=== PATIENT | female | born 1975 | race Caucasian/White ===

== ENCOUNTER 2021-08-28 08:54 | Emergency (ER) | payer BC, MEDICARE, SELFPAY ==
[2021-08-28 08:55] VITALS: BP 132/94; PULSE 83; RESP 18; TEMP 36.5; O2SAT 96; BMI 29.5
[2021-08-28 08:57] VITALS: BP 132/94; PULSE 83; RESP 18; TEMP 36.5; O2SAT 96
[2021-08-28 09:01] VITALS: BP 127/92; PULSE 89; RESP 12; O2SAT 96
--- NOTE | 2021-08-28 09:13 | EKG12_ITS ---
Test Reason : NEAR SYNCRONY Blood Pressure : / mmHG Vent. Rate : 078 BPM Atrial Rate : 078 BPM P-R Int : 188 ms QRS Dur : 088 ms QT Int : 402 ms P-R-T Axes : -02 -05 001 degrees QTc Int : 458 ms Normal sinus rhythm Poor R wave progression Confirmed by SRINIVAS COLE, EVANS ([id number]), legal editor KARLA MARSHALL ([id number]) on 08/30/2021 9:50:28 AM Referred By: PL Confirmed By:EVANS ESPINO MD
--- NOTE | 2021-08-28 09:16 | EDS_ITS ---
HPI History of Present Illness Chief Complaint: Dizziness Informant: patient Narrative Narrative: Patient had an episode of near syncope while driving with a friend. The friend was actually doing the driving. They were on their way to eat. She had not eaten or drank or taken her medications yet. She states that she got some mild tunneling of vision and voices and sounds in her ears got distant. It is now resolved. It lasted a few minutes. She never had chest pain or palpitations. No other symptoms. She felt fine before and after it and feels fine now. Patient has had at least 6 or 7 of these episodes since the summer. She is is seeing her physician for this. It sounds like she has a follow-up with an [facility] compliance coordinator. They have diagnosed her with syncope but she does not know all the details related to that. It sounds like tilt table testing or cardiac monitoring has not yet been done. Patient also has renal transplant. She had IgA nephropathy originally. First kidney transplant was . Her third 1 was done in 2007. There have been no change in rejection or other medications recently. No change in urine output. She has not felt sick in any fashion. Patient has had multiple episodes of these. When her has been around he is checked her blood pressure and found that her blood pressure is on the lower side at about 90s and her heart rate she recalls is being a bit low also. They spontaneously resolve. [facility] Medical History Diabetes Fistula HTN (hypertension) Skin cancer Syncope Allergy/AdvReac Type Severity Reaction Status Date / Time diphenhydramine Allergy Other Verified 08/28/21 08:58 [From Benadryl] iron Allergy Upset Verified 08/28/21 08:58 Stomach mycophenolate mofetil Allergy Rash Verified 08/28/21 08:58 [From CellCept] promethazine [From Phenergan] Allergy Other Verified 08/28/21 08:58 Surgical History H/O shoulder surgery H/O: hysterectomy History of hip replacement Kidney transplant recipient Social History Smoking Status: Never smoker ROS ROS ED Constitutional Constitutional ED: Denies chills or fever(s) Eyes Eyes: Reports other Details: Transient tunnel vision now resolved. ; Denies diplopia ENT ENT ED: Denies rhinorrhea or sore throat Cardiovascular Cardiovascular: Denies chest pain, palpitations or racing heartbeat Respiratory/Chest Respiratory/Chest: Denies cough or dyspnea Gastrointestinal Gastrointestinal: Denies diarrhea, nausea or vomiting Genitourinary Genitourinary ED: Reports other Details: No change in urine output. ; Denies dysuria, hematuria or urinary frequency Musculoskeletal Musculoskeletal: Denies myalgias Integumentary Denies rash Neurologic Neurologic: Denies headache(s), paresthesias or weakness Psychiatric Psychiatric: Denies anxiety or depression Endocrine Endocrinology: Denies polydipsia or polyuria Allergic/Immunologic Allergic/Immunologic ED: Denies urticaria EXAM Physical Exam Const Vital Signs: 08/28/21 08:55 08/28/21 08:57 08/28/21 09:01 Temperature 97.7 F L 97.7 F L Temperature Source Oral Oral Pulse Rate 83 83 89 Respiratory Rate 18 18 12 Respiratory Effort Normal Non-Labored Respiratory Pattern Normal Blood Pressure 132/94 H 132/94 H 127/92 H Blood Pressure Mean 106 106 103 Pulse Ox 96 96 96 Oxygen Delivery Method Room Air Room Air Room Air Oxygen Flow Rate (L/min) 08/28/21 09:17 Temperature Temperature Source Pulse Rate Respiratory Rate Respiratory Effort Respiratory Pattern Blood Pressure Blood Pressure Mean Pulse Ox Oxygen Delivery Method Room Air Oxygen Flow Rate (L/min) 97 Positive well nourished and well developed General Appearance ED: well developed and NAD; Negative for cyanotic or diaphoretic HEENT Reports moist mucous membranes Eyes General Eye ED: Negative for pale conjunctiva or scleral icterus Neck no JVD Resp normal respiratory effort and clear to auscultation bilaterally Resp Narrative: Completely clear lungs. No problem with deep breath. Effort and Inspection: Negative for pain with movement Auscultation: Negative for rales, rhonchi or wheezes Cardio regular rate, regular rhythm and no murmurs GI normal to inspection, nondistended, normoactive bowel sounds and non-tender GI Narrative: Patient's most recent kidney transplant is in the right lower quadrant. She has not been having pain or discomfort in that area. There is no tenderness. Palpation: soft Back/Spine no CVA tenderness Extremity normal to inspection Extremity Narrative: Slight decreased pulse to right upper extremity but she states that is normal because she has had a fistula there. General Extremety ED: Negative for edema or tenderness General Extremity: Negative for edema Neuro oriented x3 Sensorium / Orientation: alert Psych mental status grossly normal Skin no rashes or lesions noted MDM MDM MDM Narrative Medical decision making narrative: Normal CBC. Electrolytes showed mild decrease potassium this can be fixed with diet. Creatinine was a bit elevated. She states this is just a little bit above her baseline. Its not really out of normal range to any great degree. Calcium is minimally elevated which is common. Magnesium is normal. Troponin is negative. Urine is showing no sign of infection. There is some protein which she states is also typical. She is not having pain at her transplant site. She is feels totally normal. I find out that the patient is on Norvasc, clonidine and a beta-israel. When she has had these symptoms her blood pressure and her heart rate seem a little bit low. She states her blood pressure machine at home is reading higher than others and she is wondering if she is overtaking meds based on this. She will get her machine checked. She will follow up with her primary physician. Patient is also having her primary physician to her referral for electrophysiology at [facility]. I think this is very appropriate because of her complex medical history and should be pursued. Lab Data Attestation: I reviewed the patient's lab results. Labs: Laboratory Results - last 24 hr 08/28/21 08/28/21 08/28/21 08:46 08:46 09:54 WBC 10.8 RBC 4.40 Hgb 12.2 Hct 38.0 MCV 86.4 MCH 27.7 MCHC 32.1 RDW Std Deviation 48.5 H RDW Coeff of [place] 15.7 H Plt Count 435 MPV 10.6 Immature Gran % (Auto) 1.200 H Neut % (Auto) 53.5 Lymph % (Auto) 37.7 [place] % (Auto) 6.1 Eos % (Auto) 0.9 Baso % (Auto) 0.6 Absolute Neuts (auto) 5.8 Absolute Lymphs (auto) 4.05 Nucleated RBC % 0 Sodium 137 Potassium 3.3 L Chloride 105 Carbon Dioxide 21.0 Anion Gap 11 BUN 29 H Creatinine 1.58 H Estim Creat Clear Calc 44.19 Est GFR (MDRD) Af Amer 46 L Est GFR (MDRD) Non-Af 38 L BUN/Creatinine Ratio 18.4 Glucose 177 H Calcium 10.7 H Magnesium 1.9 Troponin I High Sens 6 Urine Color Yellow Urine Clarity Sl. Cloudy Urine pH 5.0 Ur Specific [place] 1.020 Urine Protein 500 H Urine Glucose (UA) 50 H Urine Ketones Negative Urine Occult Blood 10 H Urine Nitrite Negative Urine Bilirubin Negative Urine Urobilinogen Normal Ur Leukocyte Esterase Negative Urine RBC 0-5 SEEN Urine WBC 0-5 SEEN Ur Squamous Epith Cells 5-10 SEEN Urine Bacteria 1+ Urine Mucus Not Reportable Radiography Diagnostic Testing: Clinical Impression(s) from Imaging Studies Chest X-Ray 08/28/21 09:20 IMPRESSION: No acute abnormality is seen. Electronically Signed: Jose Brandon MD at 9:45 EST , EKG Initial EKG: Comments: EKG done due to near syncope read by me shows a normal sinus rhythm with overall rate of 78. No ectopy. No acute ST elevation or depression. MA interval, QRS duration and QTc are normal. Discharge Plan Triage Chief Complaint: Dizziness ED Provider: Ian Mosquera Dx/Rx/DC Orders Clinical Impression: Near syncope Instructions: ED Near-Fainting, Uncertain Cause Referrals: ARTEMIO DOOLEY [Other] - As soon as possible Activity Restrictions/Additional Instructions: Recommend follow-up with irb compliance coordinator as soon as possible. Disposition Disposition: Home, Self Care
--- NOTE | 2021-08-28 09:20 | RAD_ITS ---
STUDY: X-RAY CHEST REASON FOR EXAM: Female, 45 years old. Chest pain TECHNIQUE: Single AP portable view of the chest. COMPARISON: None. FINDINGS: EKG electrodes are seen. The lungs are clear and expanded. There is no demonstrated pleural abnormality. Normal size heart. Normal mediastinum and silver. Normal visualized pulmonary arteries. Normal visualized aortic arch and descending thoracic aorta. There are diffuse degenerative changes of the visualized thoracic spine. Status post bilateral shoulder replacement. There is no demonstrated abnormality of the visualized soft tissue structures of the upper abdomen. RAD/Chest 1 View (Portable) IMPRESSION: No acute abnormality is seen. Electronically Signed: Jose Brandon MD at 9:45 EST ,
[2021-08-28 09:22] LABS: Absolute Lymphocyte Count 4.05 X10^3/uL (0.83-4.51); Absolute Neutrophil Count 5.8 X10^3/uL (2.0-7.7); Basophil# 0.06 X10^3/uL; Basophil% 0.6 % (0-1); Eosinophils% 0.9 % (0-5); Hemoglobin 12.2 g/dL (12.0-15.0); Lymphocyte # 4.05 X10^3/ul (0.83-4.51); Lymphocyte % 37.7 % (19-41); Mean Corp Hgb Conc 32.1 g/dL (32-36); Mean Corpuscular Hgb 27.7 pg (27.0-32.0); Mean Corpuscular Volume 86.4 fL (81-99); Mean Platelet Vol. 10.6 fl (6.2-12.0); Monocyte# 0.66 X10^3/uL; Monocyte% 6.1 % (0-10); NRBC Flagged by Analyzer 0 % (0-5); Neutrophil # 5.75 X10^3/uL (2.7-7.7); Neutrophil % 53.5 % (47-70); Platelet Count 435 K/mm3 (150-450); RBC Distribution Width CV 15.7 % (11.6-14.6); RBC Distribution Width SD 48.5 fl (35.1-43.9); White Blood Count 10.8 K/mm3 (4.4-11.0)
[2021-08-28 09:36] LABS: Anion Gap 11 (5-15); BUN 29 mg/dL (7-18); BUN/Creat Ratio 18.4 RATIO (10-20); Calcium,Total 10.7 mg/dL (8.5-10.1); Chloride 105 mmol/L (98-107); Creatinine, Serum 1.58 mg/dL (0.55-1.02); EST Glomerular Filtration Rate 38 mL/min (>60); Est Glom Filt Rate - Afr Amer 46 mL/min (>60); Estimated Creatinine Clearance 44.19 ml/min; Glucose 177 mg/dL (74-106); Magnesium 1.9 mg/dL (1.6-2.6); Potassium 3.3 mmol/L (3.5-5.1); Sodium Level 137 mmol/L (136-145); Troponin-I HS 6 pg/mL (3.0-54.0)
[2021-08-28] MEDS: Ondansetron ODT 4 MG Tablet PO (09:44)
[2021-08-28 10:08] LABS: Color, Urine Yellow (Yellow); Glucose, Dipstick 50 mg/dl (Normal); Ketone-Dipstick Negative (Negative); Leukocyte Esterase-Dipstick Negative /ul (Negative); Nitrite-Dipstick Negative (Negative); Occult Blood-Urine 10 /ul (Negative); Protein-Dipstick 500 mg/dl (Negative); Urine Bilirubin Dipstick Negative (Negative); Urine Clarity Sl. Cloudy (Clear); Urine Urobilinogen Normal (Normal)
[2021-08-28 10:19] LABS: Red Blood Cells-Urine 0-5 SEEN /hpf (0-5); White Blood Cells 0-5 SEEN /hpf (0-5)
[2021-08-28 10:20] LABS: Squamous Epithelial Cells - UA 5-10 SEEN /hpf (5-10)
[2021-08-28 10:21] LABS: Bacteria 1+ /hpf (None Seen)
[2021-08-28 11:12] VITALS: BP 130/95; PULSE 79; RESP 18; O2SAT 94
== END 2021-08-28 11:13 | disposition home or self-care (01) ==
PROVIDERS: Emergency Provider Emergency Medicine; Visit Provider Emergency Medicine
DX: R55 Syncope and collapse (principal); Z94.0 Kidney transplant status
CPT/HCPCS: 71045; 80048; 81001; 83735; 84484; 85025; 93005; 99285